=== PATIENT | female | born 1990 | race Caucasian/White ===

== ENCOUNTER 2016-12-27 11:29 | Emergency (ER) | payer MEDICAID, OTHER ==
[~2016-12-27] VITALS: Ht 162.6 cm; Wt 100.0 kg
[2016-12-27] MEDS ORDERED: VANCOMYCIN 1 G PREMIX 200 ML IV ONE (13:45)
[2016-12-27] MEDS ORDERED: SODIUM CHLORIDE 0.9% 1000ML BAG (SEPSIS BOLUS) IV ONE (13:45)
[2016-12-27 15:07] LABS: BASOPHILS % 1.4 % (0.0-2.0); DIFFERENTIAL COMMENT 0; EOSINOPHILS % 2.5 % (0.0-5.0); HEMATOCRIT. 31.2 % (36.0-48.0); LYMPHOCYTES % 23.8 % (20.0-50.0); MEAN CORPUSCULAR HGB CONC 32.1 g/dL (31.0-37.0); MEAN CORPUSCULAR VOLUME 77.8 fL (81.0-99.0); MONOCYTES % 5.8 % (2.0-8.0); NEUTROPHILS % 66.5 % (40.0-76.0); PLATELET 457 x1000/uL (130-400); RED BLOOD CELL COUNT 4.01 mill/uL (4.2-5.4); RED CELL DISTRIBUTION WIDTH 17.7 % (11.6-14.6); WHITE BLOOD COUNT 8.8 x1000/uL (4.5-11.0)
[2016-12-27 15:12] LABS: PROTHROMBIN TIME 10.9 sec
[2016-12-27 15:22] LABS: HCG SCREEN NEGATIVE
[2016-12-27 15:24] LABS: CHLORIDE 109 mEq/L (98-107); INDEX HEMOLYSI 1 (1-3); INDEX ICTERIC 1 (1-4); INDEX LIPEMIC 1 (1-3)
[2016-12-27 15:32] LABS: ALANINE AMINOTRANSFERASE 21 IU/L (13-61); ANION GAP 15; CALCIUM 8.6 mg/dL (8.5-10.1); CARBON DIOXIDE 23 mEq/L (21-32); LIPASE 92 IU/L (73-393); UREA NITROGEN BLOOD 6 mg/dL (7-21); eGFR > 60 mL/min (>60)
[2016-12-27 15:43] LABS: CLARITY URINE CLEAR (CLEAR); COLOR URINE YELLOW (YELLOW); GLUCOSE URINE NEGATIVE (NEGATIVE); KETONES URINE NEGATIVE (NEGATIVE); LEUKOCYTE ESTERASE URINE TRACE (NEGATIVE); NITRITE URINE NEGATIVE (NEGATIVE); OCCULT BLOOD URINE NEGATIVE (NEGATIVE); PH URINE 5.5 (4.5-8.0); PROTEIN URINE NEGATIVE (NEGATIVE); SPECIFIC GRAVITY URINE 1.011 (1.005-1.030); UROBILINOGEN URINE 0.2 E.U./dL (0.2-1.0)
[2016-12-27 16:12] LABS: BACTERIA URINE 1+; RBC URINE 0-2 /hpf (0-2); SQUAMOUS EPITHELIAL CELL URINE FEW /lpf (RARE/1+); WBC URINE 0-2 /hpf (0-2)
[2016-12-27 16:50] VITALS: BP 119/71
[2016-12-27] MEDS ORDERED: ENOXAPARIN 40MG/0.4ML SYR SUBCUT SCH (19:30)
[2016-12-27] MEDS ORDERED: HYDROCODONE/ACETAMINOPHEN 5/325MG TABLET PO PRN (19:30)
[2016-12-27] MEDS ORDERED: PIPERACILLIN/TAZ 3.375G PREMIX 50 ML IV SCH (19:30)
[2016-12-27] MEDS ORDERED: IPRATROPIUM/ALBUTEROL 0.5-3(2.5)MG/3ML NEB INH PRN (19:30)
[2016-12-27] MEDS ORDERED: ONDANSETRON HCL 4MG/2ML VIAL IV PRN (19:30)
[2016-12-27] MEDS ORDERED: CLONIDINE 0.1MG TABLET PO PRN (19:30)
[2016-12-27] MEDS ORDERED: ACETAMINOPHEN 325MG TABLET PO PRN (19:30)
[2016-12-27] MEDS ORDERED: MAGNESIUM/ALUMINUM HYDROXIDE/SIMETHICONE 30ML UDC PO PRN (19:30)
== END 2016-12-27 17:48 | disposition home or self-care (01) ==
LOC: ER 13:47
DX: S71.101A Unspecified open wound, right thigh, initial encounter (principal); L97.529 Non-pressure chronic ulcer of other part of left foot with unspecified severity; Z91.018 Allergy to other foods; X58.XXXA Exposure to other specified factors, initial encounter; Y93.89 Activity, other specified; Y92.89 Other specified places as the place of occurrence of the external cause; Y99.8 Other external cause status
CPT/HCPCS: 36415; 71010; 76881; 80053; 81001; 83605; 83690; 84703; 85025; 85610; 87040; 87086; 96365; 96375; 99285; J3370; J7030; Z7610

== ENCOUNTER 2019-02-05 00:10 | Emergency (ER) | payer MEDICAID, OTHER ==
[~2019-02-05] VITALS: Ht 160 cm; Wt 98.0 kg
[2019-02-05] MEDS ORDERED: SODIUM CHLORIDE 0.9% 1,000 ML IV ONE (03:14)
[2019-02-05] MEDS ORDERED: MORPHINE SULFATE 2 MG/ML CPJ (NOT FOR IM USE) IV ONE (03:15)
[2019-02-05 04:27] LABS: BASOPHILS % 1.4 % (0.0-2.0); HEMATOCRIT. 29.2 % (36.0-48.0); HEMOGLOBIN. 8.8 g/dL (12.0-16.0); LYMPHOCYTES % 36.4 % (20.0-50.0); MEAN CORPUSCULAR HEMOGLOBIN 19.1 pg (28.0-32.0); MEAN CORPUSCULAR VOLUME 63.3 fL (81.0-99.0); MEAN PLATELET VOLUME 8.1 fl (7.4-10.4); MONOCYTES % 8.1 % (2.0-8.0); NEUTROPHILS % 52.1 % (40.0-76.0); PLATELET 564 x1000/uL (130-400); RED BLOOD CELL COUNT 4.61 mill/uL (4.2-5.4); RED CELL DISTRIBUTION WIDTH 22.3 % (11.6-14.6)
[2019-02-05 04:30] LABS: CHLORIDE 109 mEq/L (98-107)
[2019-02-05 04:32] LABS: HCG SCREEN NEGATIVE
[2019-02-05 04:33] LABS: PROTHROMBIN TIME 10.4 sec (9.6-11.0)
[2019-02-05 05:03] LABS: PLATELET ESTIMATE INCREASED
[2019-02-05 10:01] LABS: CLARITY URINE CLEAR (CLEAR); COLOR URINE RED (YELLOW); KETONES URINE TRACE (NEGATIVE); LEUKOCYTE ESTERASE URINE 1+ (NEGATIVE); NITRITE URINE NEGATIVE (NEGATIVE); OCCULT BLOOD URINE 3+ (NEGATIVE); PROTEIN URINE TRACE (NEGATIVE); SPECIFIC GRAVITY URINE 1.013 (1.005-1.030); UROBILINOGEN URINE 0.2 E.U./dL (0.2-1.0)
[2019-02-05 10:48] VITALS: BP 105/69
== END 2019-02-05 11:34 | disposition home or self-care (01) ==
LOC: ER 00:10
DX: N39.0 Urinary tract infection, site not specified (principal); K76.0 Fatty (change of) liver, not elsewhere classified; M19.90 Unspecified osteoarthritis, unspecified site; Z87.828 Personal history of other (healed) physical injury and trauma; Z91.018 Allergy to other foods
CPT/HCPCS: 36415; 74176; 76700; 80053; 81003; 83690; 84703; 85025; 85610; 96374; 99284; J2270; J7030; Z7610

== ENCOUNTER 2019-02-20 00:26 | Emergency (ER) | payer MEDICAID ==
[~2019-02-20] VITALS: Ht 160 cm; Wt 98.0 kg
[2019-02-20] MEDS ORDERED: LIDOCAINE HCL/PF 1% 10 MG/ML 5ML VIAL IJ ONE (01:15)
[2019-02-20] MEDS ORDERED: BACITRACIN ZINC OINT UDPKT TOP ONE (01:15)
[2019-02-20 02:16] VITALS: BP 116/72
== END 2019-02-20 02:16 | disposition home or self-care (01) ==
LOC: ER 00:26
DX: N61.1 Abscess of the breast and nipple (principal); Z91.018 Allergy to other foods; Z88.0 Allergy status to penicillin; Z98.890 Other specified postprocedural states
CPT/HCPCS: 10060; 99283; J3490

== ENCOUNTER 2019-03-05 15:44 | Inpatient (IN) | payer MEDICAID ==
[~2019-03-05] VITALS: Ht 160 cm; Wt 96.6 kg
[2019-03-05] MEDS ORDERED: SODIUM CHLORIDE 0.9% 1,000 ML IV ONE (16:50)
[2019-03-05 17:14] LABS: BASOPHILS % 0.9 % (0.0-2.0); LYMPHOCYTES % 15.4 % (20.0-50.0); MEAN CORPUSCULAR VOLUME 64.8 fL (81.0-99.0); MEAN PLATELET VOLUME 7.8 fl (7.4-10.4); MONOCYTES % 6.5 % (2.0-8.0); NEUTROPHILS % 76.2 % (40.0-76.0); PLATELET 446 x1000/uL (130-400); RED BLOOD CELL COUNT 2.73 mill/uL (4.2-5.4); RED CELL DISTRIBUTION WIDTH 20.4 % (11.6-14.6)
[2019-03-05 17:19] LABS: HEMATOCRIT. 17.7 % (36.0-48.0); HEMOGLOBIN. 5.2 g/dL (12.0-16.0)
[2019-03-05 17:20] LABS: CHLORIDE 108 mEq/L (98-107)
[2019-03-05 17:26] LABS: HCG SCREEN NEGATIVE
[2019-03-05 17:33] LABS: PLATELET ESTIMATE INCREASED
[2019-03-05 21:20] LABS: PARTIAL THROMBOPLASTIN TIME 25.9 sec (23.4-31.0); PROTHROMBIN TIME 10.8 sec (9.6-11.0)
[2019-03-05 22:00] LABS: CLARITY URINE TURBID (CLEAR); COLOR URINE RED (YELLOW); KETONES URINE NEGATIVE (NEGATIVE); LEUKOCYTE ESTERASE URINE 1+ (NEGATIVE); NITRITE URINE NEGATIVE (NEGATIVE); OCCULT BLOOD URINE 3+ (NEGATIVE); PROTEIN URINE 2+ (NEGATIVE); SPECIFIC GRAVITY URINE 1.014 (1.005-1.030); UROBILINOGEN URINE 0.2 E.U./dL (0.2-1.0)
[2019-03-06] VITALS (12 sets, daily range): BP systolic 95–146; BP diastolic 47–95
[2019-03-06] MEDS ORDERED: HYDROCODONE/ACETAMINOPHEN 5/325MG TABLET PO PRN
[2019-03-06] MEDS ORDERED: CLONIDINE 0.1MG TABLET PO PRN
[2019-03-06] MEDS ORDERED: IPRATROPIUM/ALBUTEROL 0.5-3(2.5)MG/3ML NEB INH PRN
[2019-03-06] MEDS ORDERED: DOCUSATE SODIUM 100MG CAPSULE PO PRN
[2019-03-06] MEDS ORDERED: ACETAMINOPHEN 325MG TABLET PO PRN
[2019-03-06] MEDS ORDERED: ONDANSETRON HCL 4MG/2ML INJ IV PRN
[2019-03-06] MEDS: SODIUM CHLORIDE 0.9% 1,000 ML IV SCH ×2 (02:59→14:10)
[2019-03-06 03:01] LABS: *AMPHETAMINES SCREEN URINE NEGATIVE (NEGATIVE); *BARBITURATES SCREEN URINE NEGATIVE (NEGATIVE); *BENZODIAZEPINES SCREEN URINE NEGATIVE (NEGATIVE); *COCAINE SCREEN URINE NEGATIVE (NEGATIVE)
[2019-03-06 03:02] LABS: CANNABINOID URINE SCREEN NEGATIVE (NEGATIVE); METHADONE URINE SCREEN NEGATIVE (NEGATIVE); OPIATES URINE SCREEN NEGATIVE (NEGATIVE); PHENCYCLIDINE URINE SCREEN NEGATIVE (NEGATIVE)
[2019-03-06 07:22] LABS: CREATINE KINASE 29 IU/L (26-192); LDL CHOLESTEROL 91 mg/dL (5-100)
[2019-03-06 07:24] LABS: HDL CHOLESTEROL 23 mg/dL (40-59)
[2019-03-06 07:27] LABS: CREATINE KINASE MB FRACTION < 1.0 ng/mL (0.5-3.6)
[2019-03-06 07:28] LABS: EOSINOPHILS % 0.9 % (0.0-5.0); LYMPHOCYTES % 26.7 % (20.0-50.0); MEAN CORPUSCULAR HEMOGLOBIN 21.3 pg (28.0-32.0); MEAN CORPUSCULAR VOLUME 68.9 fL (81.0-99.0); MEAN PLATELET VOLUME 8.3 fl (7.4-10.4); MONOCYTES % 8.6 % (2.0-8.0); NEUTROPHILS % 62.8 % (40.0-76.0); PLATELET 407 x1000/uL (130-400); RED BLOOD CELL COUNT 2.85 mill/uL (4.2-5.4)
[2019-03-06 08:30] LABS: HEMOGLOBIN. 6.1 g/dL (12.0-16.0)
[2019-03-06 08:31] LABS: HEMATOCRIT. 19.6 % (36.0-48.0)
[2019-03-06] MEDS: FERROUS SULFATE 325MG TABLET PO SCH ×3 (08:58→18:34)
[2019-03-06] MEDS ORDERED: CEFTRIAXONE 1 G PREMIX 50 ML IV SCH (13:30)
[2019-03-06] MEDS: LEVOFLOXACIN 500MG PREMIX 100 ML IV SCH (15:22)
[2019-03-06 16:45] LABS: HEMATOCRIT 21.7 % (36.0-48.0)
[2019-03-06 16:55] LABS: HEMOGLOBIN 6.9 g/dL (12.0-16.0)
[2019-03-06 16:58] LABS: INR 1.1; PROTHROMBIN TIME 11.1 sec (9.6-11.0)
[2019-03-06 17:00] LABS: CREATINE KINASE 23 IU/L (26-192)
[2019-03-06 17:01] LABS: CREATINE KINASE MB FRACTION < 1.0 ng/mL (0.5-3.6)
[2019-03-06 19:59] LABS: HEMATOCRIT 21.3 % (36.0-48.0); MEAN CORPUSCULAR HEMOGLOBIN 23.7 pg (28.0-32.0); PLATELET 381 x1000/uL (130-400); RED BLOOD CELL COUNT 2.87 mill/uL (4.2-5.4); RED CELL DISTRIBUTION WIDTH 23.2 % (11.6-14.6)
[2019-03-06 20:03] LABS: HEMOGLOBIN 6.8 g/dL (12.0-16.0)
[2019-03-07] VITALS (11 sets, daily range): BP systolic 98–139; BP diastolic 43–81
[2019-03-07 00:25] LABS: HEMATOCRIT 20.7 % (36.0-48.0); HEMOGLOBIN 6.6 g/dL (12.0-16.0)
[2019-03-07] MEDS: SODIUM CHLORIDE 0.9% 1,000 ML IV SCH ×2 (02:50→16:13)
[2019-03-07 04:12] LABS: CHLORIDE 111 mEq/L (98-107)
[2019-03-07 04:13] LABS: INR 1.1; PROTHROMBIN TIME 10.9 sec (9.6-11.0)
[2019-03-07 04:15] LABS: HEMATOCRIT 27.6 % (36.0-48.0); HEMOGLOBIN 8.9 g/dL (12.0-16.0); MEAN CORPUSCULAR HEMOGLOBIN 25.1 pg (28.0-32.0); PLATELET 312 x1000/uL (130-400); RED BLOOD CELL COUNT 3.54 mill/uL (4.2-5.4); RED CELL DISTRIBUTION WIDTH 22.2 % (11.6-14.6)
[2019-03-07 04:17] LABS: TOTAL IRON BINDING CAPACITY 375 ug/dL (250-450)
[2019-03-07] MEDS: FERROUS SULFATE 325MG TABLET PO SCH ×3 (07:53→18:10)
[2019-03-07] MEDS: LEVOFLOXACIN 500MG PREMIX 100 ML IV SCH (11:39)
[2019-03-07] MEDS ORDERED: PROPOFOL 200MG/20ML VIAL IV ONE (13:11)
[2019-03-07] MEDS ORDERED: MIDAZOLAM HCL 2 MG/2 ML VIAL ONE (13:11)
[2019-03-07] MEDS ORDERED: FENTANYL CITRATE/PF 50MCG/ML 2ML VIAL ONE (13:11)
[2019-03-07] MEDS ORDERED: LABETALOL 5MG/ML SYR 20 MG/4 ML SYRINGE IV PRN (13:30)
[2019-03-07] MEDS ORDERED: ONDANSETRON HCL 4MG/2ML INJ IV PRN (13:30)
[2019-03-07] MEDS ORDERED: MEPERIDINE HCL/PF 25MG/ML CPJ IV PRN (13:30)
[2019-03-07] MEDS ORDERED: DEXAMETHASONE 4MG/ML 1ML VIAL ONE (13:35)
[2019-03-07] MEDS ORDERED: ONDANSETRON HCL 4MG/2ML INJ ONE (13:35)
[2019-03-07 14:40] LABS: HEMATOCRIT 24.7 % (36.0-48.0); MEAN CORPUSCULAR HEMOGLOBIN 25.3 pg (28.0-32.0); MEAN CORPUSCULAR VOLUME 77.9 fL (81.0-99.0); PLATELET 322 x1000/uL (130-400); RED BLOOD CELL COUNT 3.16 mill/uL (4.2-5.4); RED CELL DISTRIBUTION WIDTH 22.6 % (11.6-14.6)
[2019-03-07] MEDS: HYDROMORPHONE HCL/PF 2MG/ML CPJ IV PRN ×3 (14:46→15:12)
[2019-03-07 19:47] LABS: BASOPHILS % 1.4 % (0.0-2.0); EOSINOPHILS % 1.1 % (0.0-5.0); HEMATOCRIT. 25.3 % (36.0-48.0); LYMPHOCYTES % 21.8 % (20.0-50.0); MEAN CORPUSCULAR HEMOGLOBIN 25.1 pg (28.0-32.0); MEAN CORPUSCULAR VOLUME 79.6 fL (81.0-99.0); MEAN PLATELET VOLUME 8.4 fl (7.4-10.4); MONOCYTES % 5.6 % (2.0-8.0); NEUTROPHILS % 70.1 % (40.0-76.0); PLATELET 331 x1000/uL (130-400); RED BLOOD CELL COUNT 3.19 mill/uL (4.2-5.4); RED CELL DISTRIBUTION WIDTH 22.2 % (11.6-14.6)
[2019-03-07] MEDS: SILVER SULFADIAZINE 1% CREAM 50GM TOP SCH (21:00)
[2019-03-07 22:17] LABS: HEMOGLOBIN 7.1 g/dL (12.0-16.0); MEAN CORPUSCULAR HEMOGLOBIN 25.3 pg (28.0-32.0); MEAN CORPUSCULAR VOLUME 79.8 fL (81.0-99.0); RED BLOOD CELL COUNT 2.79 mill/uL (4.2-5.4); RED CELL DISTRIBUTION WIDTH 22.3 % (11.6-14.6)
[2019-03-07 22:32] LABS: PLATELET 76 x1000/uL (130-400)
[2019-03-07 22:33] LABS: HEMATOCRIT 22.2 % (36.0-48.0)
[2019-03-08] VITALS: BP 112/70
[2019-03-08 04:00] VITALS: BP 97/51
[2019-03-08] MEDS: SODIUM CHLORIDE 0.9% 1,000 ML IV SCH (05:02)
[2019-03-08 08:00] VITALS: BP 103/61
[2019-03-08] MEDS: FERROUS SULFATE 325MG TABLET PO SCH ×2 (10:13→14:28)
[2019-03-08] MEDS: SILVER SULFADIAZINE 1% CREAM 50GM TOP SCH (10:14)
[2019-03-08] MEDS: LEVOFLOXACIN 500MG PREMIX 100 ML IV SCH (10:18)
[2019-03-08 12:00] VITALS: BP 104/59
[2019-03-08 13:19] LABS: BASOPHILS % 0.4 % (0.0-2.0); HEMATOCRIT. 22.4 % (36.0-48.0); HEMOGLOBIN. 7.1 g/dL (12.0-16.0); LYMPHOCYTES % 11.3 % (20.0-50.0); MEAN CORPUSCULAR HEMOGLOBIN 25.5 pg (28.0-32.0); MEAN CORPUSCULAR VOLUME 80.2 fL (81.0-99.0); MEAN PLATELET VOLUME 8.2 fl (7.4-10.4); MONOCYTES % 11.4 % (2.0-8.0); NEUTROPHILS % 76.9 % (40.0-76.0); PLATELET 362 x1000/uL (130-400); RED BLOOD CELL COUNT 2.79 mill/uL (4.2-5.4); RED CELL DISTRIBUTION WIDTH 22.9 % (11.6-14.6)
[2019-03-08 16:00] VITALS: BP 105/57
== END 2019-03-08 17:10 | disposition home or self-care (01) | DRG 517 ==
LOC: ER 15:44 → 7WST 21:09 → EDBEDREQTM 21:43 → EDBEDREQ 21:43 → ENRESERV 23:37
PROVIDERS: ADMIT Internal Medicine; ATTEND Internal Medicine
PROC: 30233N1 Transfusion of Nonautologous Red Blood Cells into Peripheral Vein, Percutaneous Approach (ICD-10-PCS; 2019-03-05)
PROC: 0UDB7ZZ Extraction of Endometrium, Via Natural or Artificial Opening (ICD-10-PCS; principal; 2019-03-07)
DX: N92.0 Excessive and frequent menstruation with regular cycle (principal); D62 Acute posthemorrhagic anemia; N39.0 Urinary tract infection, site not specified; E78.1 Pure hyperglyceridemia; R31.9 Hematuria, unspecified; M19.90 Unspecified osteoarthritis, unspecified site; Z99.3 Dependence on wheelchair; Q68.8 Other specified congenital musculoskeletal deformities; Z88.1 Allergy status to other antibiotic agents; Z91.018 Allergy to other foods
CPT/HCPCS: 36415; 76856; 80048; 80061; 80305; 82550; 82553; 82728; 83540; 83550; 84443; 84484; 84703; 85014; 85018; 85027; 85049; 85384; 86850; 86900; 86920; 88305; 93005; 93970; 99285; J0696; J1100; J1170; J1956; J2250; J2405; J2704; J3010; J7030; J7040; J7050; P9016